=== PATIENT | female | born 1990 | race Hispanic/Latino ===

== ENCOUNTER 2019-12-06 11:19 | Day surgery (SDC) | payer OTHER ==
[2019-12-06 12:37] VITALS: BP 114/65; TEMP 98.3; BMI 33.1
--- NOTE | 2019-12-06 12:59 | PDOC.FPROB ---
FMR OB H&P: HPI - History of Present Illness Chief Complaint: Decreased Movement Indentification: 29 y/o at 39.3 wga by LMP. History of Present Illness: 29 y/o at 39.3 wga by LMP presents today after being seen at PNC for decreased movement which patient noticed this weekend. This is the first time she has experienced decrease in movement in this and was concerned about this. She denied VD, VB, LOF, headaches, vision changes/blurry vision, CP, SOB, N/V/D, dysuria, hematuria, or fever/chills. This has been uncomplicated according to patient, she has been keeping up with her PNC visits. Primary Care Physician: PNC: Chay FMR OB H&P: Current - Care : 3 Para: 1 Gestational age: 39.3 wga Due date: 12/10/19 Dating Criteria: LMP - OB Labs Blood type: O RH: positive HIV: negative RPR: negative Rubella: immune Gonorrhea: negative Chlamydia: negative Pap Smear: normal 1 hour gtt: 90 3 hour GTT: 92 GBS: positive FMR OB H&P: History - Past Medical History PMH: None - OB History OB History: 2016: D&C vs. 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 ectopic at 4 weeks, patient is unsure ([place]) 2014: due to macrosomia ([place]) 2010: appendectomy and partial ovary removal due to cyst - Social History Social History: no tobacco, etoh, drug use - Family History Family History: Mother: HTN, DM FMR OB H&P: Medications - Current Home Medications: Medication Instructions Recorded Confirmed Type Doxylamine [Unisom] 12.5 mg PO BID PRN 12/06/19 12/06/19 History Pnv No.95/Ferrous Fum/Folic AC 1 each PO DAILY 12/06/19 12/06/19 History [ Caplet] Allergies/Adverse Reactions: Allergies Allergy/AdvReac Type Severity Reaction Status Date / Time Penicillins Allergy Severe Short of Verified 12/06/19 12:39 Breath betamethasone Allergy Mild Rash Verified 12/06/19 12:40 FMR OB H&P: ROS - Review of Systems General: denies: fever/chills ENT: denies: nasal congestion Cardiovascular: denies: chest pain, palpitation, edema, orthopnea Respiratory: denies: cough, congestion, shortness of breath Gastrointestinal: denies: abdominal pain, indigestion, bloating, diarrhea, constipation, bright red blood Genitourinary (Female): reports: contractions. denies: incontinence, dysuria, hematuria, polyuria, vaginal discharge, vaginal pain, vaginal bleeding, vaginal pressure Musculoskeletal: denies: pain, stiffness, tenderness, decrease range of motion, arthritis/arthralgias Neurologic: denies: numbness, headache Integumentary: denies: itching, rash Psychological: denies: depression, anxiety FMR OB H&P: Vital Signs - Maternal Vital signs: Vital Signs - First Documented Temp Pulse Resp BP Pulse Ox 98.3 F 72 16 114/65 99 12/06/19 12:16 12/06/19 12:16 12/06/19 12:16 12/06/19 12:16 12/06/19 12:16 - Heart Tones Baseline: 140 Variability: moderate Acceleration: present Category: category 1 (about 60 minutes worth of monitoring; baby had about 6 min of minimal variability, however, after this there were occasional accels, HR in 140s, with no ctx seen, moderate variability also seen) FMR OB H&P: Physical Exam - Physical Exam General: NAD HEENT: normocephalic and atraumatic, PERRLA Neck: supple Chest: non-tender to palpation Breast: symmetric, non-tender, no erythema Heart: RRR, normal S1/S2, no murmurs/rubs/gallops, no edema General: CTAB, no respiratory distress, good air movement, no wheezing Abdomen: gravid, non-tender Musculoskeletal: normal gait and station, pulses present, no misalignment/asymmetry Neurological: cranial nerves II through XII intact Skin: no rash, good tugor Lymphatic: no unusual bruising or bleeding Psychiatric: intact recent and remote memory FMR OB H&P: A/P Discussion: Date/Time: 12/06/19 1257 29 y/o at 39.3 wga by LMP presents with decreased movement. ##sIUP in third trimester -at 39.3 wga, no complications during this -maternal labs have been neg so far in -GBS positive - tracing showed category one strip with FHT in 130s-140s with moderate variability and noted accels with no ctx seen -SVE at 10:30 am today was /-3 -will order mBPP for eval for oligo, if this is also reassuring, anticipate d/c This H&P was discussed with Dr. Coffey who agree with the above documentation and plan. Addendum: BPP was noted to be normal with LUIS FERNANDO of 13.9. Head was in vertex position. Placenta was posterior. Due to these results on top of reassuring NST, it was decided to d/c patient home with ER precautions. She is scheduled on 12/08 for TOLAC. Addendum - Attending - Attending Attestation Date/Time: 12/07/19 7199 I personally evaluated the patient and discussed the management with Dr. Scott. I agree with the History, Examination, Assessment and Plan documented above with any addition or exceptions noted below.
[2019-12-06] MEDS ORDERED: hydrALAZINE 20 MG/ML VIAL SLOW IVP PRN (13:39)
--- NOTE | 2019-12-06 15:30 | ULT ---
US Biophysical Profile: 12/06/2019 1:39 PM CLINICAL HISTORY: Decreased movement. COMPARISON: None. FINDINGS: heart rate: 121 bpm. LUIS FERNANDO: 13.9 cm Biophysical profile: 8 of 8 IMPRESSION: Normal biophysical profile
[2019-12-06] MEDS ORDERED: Magnesium Sulfate 20 gm/500 ml 0 GM/0 ML BAG ONE (15:36)
== END 2019-12-06 15:34 | disposition home or self-care (01) ==
LOC: L&D/OP 11:19
PROVIDERS: ATTEND Obstetrics & Gynecology
DX: O36.8130 Decreased fetal movements, third trimester, not applicable or unspecified (principal); O34.219 Maternal care for unspecified type scar from previous cesarean delivery; Z3A.39 39 weeks gestation of pregnancy; Z88.0 Allergy status to penicillin; Z88.8 Allergy status to other drugs, medicaments and biological substances
CPT/HCPCS: 76819; J3475

== ENCOUNTER 2019-12-08 15:15 | Outpatient (CLI) | payer OTHER ==
[2019-12-09 13:19] LABS: SARS-CoV-2 MS2 Positive; SARS-CoV-2 N Gene Negative; SARS-CoV-2 S Gene Negative; SARS-CoV-2 by NAA Not Detected (NotDetected); SARS-CoV-2 orf1ab Negative
== END 2019-12-08 15:16 | disposition home or self-care (01) ==
LOC: LABBT 15:15
PROVIDERS: ATTEND Family Medicine
DX: Z20.828 Contact with and (suspected) exposure to other viral communicable diseases (principal)
CPT/HCPCS: 87635; U0003

== ENCOUNTER 2019-12-09 06:37 | Day surgery (SDC) | payer OTHER ==
[2019-12-09 07:14] VITALS: BMI 33.5
[2019-12-09] MEDS ORDERED: FLU VACC QS2020-21(6MOS UP)/PF 60 MCG/0.5 ML SYRINGE IM ONE (07:30)
[2019-12-09] MEDS ORDERED: hydrALAZINE 20 MG/ML VIAL SLOW IVP PRN (07:49)
--- NOTE | 2019-12-09 08:22 | PDOC.FPROB ---
FMR OB H&P: HPI - History of Present Illness Chief Complaint: Contractions Indentification: 29 y/o 39.6 wga History of Present Illness: 29 y/o at 39.6 wga by LMP presents this AM after feeling contractions since 3:30 AM today. She states that her contractions have been about 5-8 minutes apart and have not spaced out since this AM and this was the reason why she came in today. She states that she has been feeling progressive leakage of fluid since yesterday which has been clear in consistency and states that she has had to change her underwear multiple times due to soaking through them. She endorses movement however she denies VB, VD, headaches, vision changes/blurry vision, CP/SOB, and abdominal pain. She was seen in OB triage on Friday the for decreased movement, however, she states that this has resolved. Primary Care Physician: LUIS DANIEL Cartwright FMR OB H&P: Current - Care : 3 Para: 1 Gestational age: 39.6 Due date: 12/10/2019 - OB Labs Blood type: O RH: positive HIV: negative RPR: negative HepBsAg: negative Rubella: immune Gonorrhea: negative Chlamydia: negative 1 hour gtt: 90 3 hour GTT: 92 GBS: positive FMR OB H&P: History - Past Medical History PMH: None - OB History OB History: 2016: D&C vs. 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 ectopic at 4 weeks, patient is unsure ([place]) 2014: due to macrosomia ([place]) 2010: appendectomy and partial ovary removal due to cyst - Social History Social History: no tobacco, etoh, drug use - Family History Family History: Mother: HTN, DM FMR OB H&P: Medications - Current Home Medications: Medication Instructions Recorded Confirmed Type Doxylamine [Unisom] 12.5 mg PO BID PRN 12/06/19 12/06/19 History Pnv No.95/Ferrous Fum/Folic AC 1 each PO DAILY 12/06/19 12/06/19 History [ Caplet] Allergies/Adverse Reactions: Allergies Allergy/AdvReac Type Severity Reaction Status Date / Time Penicillins Allergy Severe Short of Verified 12/09/19 07:15 Breath betamethasone Allergy Mild Rash Verified 12/09/19 07:15 FMR OB H&P: ROS - Review of Systems General: denies: fever/chills Eyes: denies: vision changes, double vision, scotomas ENT: denies: nasal congestion Cardiovascular: denies: chest pain, palpitation, edema Respiratory: denies: cough, congestion, shortness of breath Gastrointestinal: denies: abdominal pain, indigestion, diarrhea, constipation Genitourinary (Female): denies: incontinence, dysuria, hematuria, polyuria, vaginal discharge, vaginal pain, contractions, vaginal pressure Musculoskeletal: denies: pain, stiffness, tenderness Neurologic: denies: numbness, syncope, seizures Integumentary: denies: itching, rash, lesions FMR OB H&P: Vital Signs - Maternal Vital signs: BP: 116/72, HR 88, RR 18 - Heart Tones Baseline: 140 Variability: moderate Acceleration: present Deceleration: absent Category: category 1 [place] contractions every: 2-6 minutes FMR OB H&P: Physical Exam - Physical Exam General: NAD, awake, alert and oriented HEENT: normocephalic and atraumatic, PERRLA, MMM Neck: supple Chest: non-tender to palpation, no lesions Heart: RRR, normal S1/S2, no murmurs/rubs/gallops, no edema General: CTAB, no respiratory distress, good air movement, no rales/rhonchi, no wheezing, no retractions Abdomen: gravid, non-tender Deviation from normal: vertical incision scar Musculoskeletal: normal gait and station, pulses present, FROM in all four extremities Neurological: no clonus, no tremor, no focal deficit Skin: no rash, good tugor Lymphatic: no unusual bruising or bleeding Psychiatric: intact recent and remote memory, good judgement and insight, normal mood and affect - Pelvic Exam Vulva: normal hair distribution, no blood SVE: 50/-2 FMR OB H&P: A/P Disposition: 29 y/o at 39.6 wga by LMP presents today with contractions ##supervision sIUP in third trimester -at 39.6 wga, no hx of complications in this -maternal labs have been neg so far in , pap smear wnl -GBS positive, anaphylactic reaction to PCNs - tracing showed category one strip with FHT in 140s with moderate variability and noted accels with 2 earlies -SVE at 10:30 am on Tuesday 12/05 was 1/50/-3 in PNC office -was seen on 12/05 as triage and mBPP was performed with reassuring NST and LUIS FERNANDO of 13.9 -today SVE was 2/50/-2 at 0800 -u/s confirmed head in vertex position today -maternal VSS, no severely elevated BPs -obtained amnisure, pending results ##hx of macrosomia -aware -has had , unsure if this was a classical csx, was done in [place] -has been approved for TOLAC with Dr. Hinson ##hx of spontaneous -aware -at 4 weeks Plan: await amnisure. will recheck in about 2 hours to monitor progression. This H&P was discussed with Dr. Galeana who agree with the above documentation and plan.
[2019-12-09 08:36] LABS: Amnisure Test No Membranes Rupture (No Rupture)
[2019-12-09 08:37] LABS: Amnisure Internal Control QC ACCEPTABLE (ACCEPTABLE)
== END 2019-12-09 10:45 | disposition home or self-care (01) ==
LOC: L&D/OP 06:37
PROVIDERS: ATTEND Family Medicine
DX: O47.1 False labor at or after 37 completed weeks of gestation (principal); O99.891 Other specified diseases and conditions complicating pregnancy; N89.8 Other specified noninflammatory disorders of vagina; O34.219 Maternal care for unspecified type scar from previous cesarean delivery; O99.820 Streptococcus B carrier state complicating pregnancy; Z3A.39 39 weeks gestation of pregnancy; Z88.0 Allergy status to penicillin; Z88.8 Allergy status to other drugs, medicaments and biological substances
CPT/HCPCS: 84112

== ENCOUNTER 2019-12-09 23:42 | Inpatient (IN) | payer OTHER, SELFPAY ==
[2019-12-10 00:20] VITALS: BMI 33.5
[2019-12-10] MEDS ORDERED: NS / Oxytocin 40 units/1000ml 1,000 ML IV PRN (01:02)
[2019-12-10] MEDS ORDERED: Misoprostol 200 MCG TAB PR PRN (01:02)
[2019-12-10] MEDS ORDERED: hydrALAZINE 20 MG/ML VIAL SLOW IVP PRN (01:02)
[2019-12-10] MEDS ORDERED: Methylergonovine 0.2 MG/ML VIAL IM PRN (01:02)
[2019-12-10] MEDS ORDERED: Promethazine HCl 25 MG/ML VIAL IM PRN (01:02)
[2019-12-10] MEDS ORDERED: Ibuprofen 800 MG TAB PO PRN (01:02)
[2019-12-10] MEDS ORDERED: Carboprost 250 MCG/ML AMP IM PRN (01:02)
[2019-12-10] MEDS ORDERED: Lidocaine 1% (PF) 30 ML VIAL SC PRN (01:02)
[2019-12-10] MEDS ORDERED: Acetaminophen 500 MG TAB PO PRN (01:02)
--- NOTE | 2019-12-10 01:02 | PDOC.FPROB ---
FMR OB H&P: HPI - History of Present Illness Chief Complaint: Contractions History of Present Illness: 29 y/o at 39.7 wga by LMP presents to L&D with complains of contractions. The patient was seen in triage on 0800 12/08 with contractions every 5-8 min starting at 0330. Cervical check at that time was 2/50/-2. Patient was in latent labor and was sent home. She reports contractions increased in severity and frequency at home. Now occurring every 5 minutes. + FM. Denies vaginal bleeding, abnormal vaginal discharge and LOF. Denies headaches, vision changes/blurry vision, CP, SOB, and abdominal pain. 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: Pap smear during normal with negative HPV - Surgical History Sx History: 2016: D&C, patient unsure of details, completed in [place] 2013: 2009: appendectomy and partial ovary removal due to cyst - Social History Social History: Denies tobacco use, ETOH use and drug use - Family History Family History: Mother - HTN, DM FMR OB H&P: Medications - Current Home Medications: Medication Instructions Recorded Confirmed Type Doxylamine [Unisom] 12.5 mg PO BID PRN 12/06/19 12/06/19 History Pnv No.95/Ferrous Fum/Folic AC 1 each PO DAILY 12/06/19 12/06/19 History [ Caplet] Allergies/Adverse Reactions: Allergies Allergy/AdvReac Type Severity Reaction Status Date / Time Penicillins Allergy Severe Short of Verified 12/10/19 00:17 Breath betamethasone Allergy Mild Rash Verified 12/10/19 00:17 FMR OB H&P: ROS - Review of Systems General: denies: fever/chills, night sweats Eyes: denies: vision changes, double vision ENT: denies: nasal congestion, rhinorrhea Cardiovascular: denies: chest pain, edema Respiratory: denies: cough, shortness of breath Gastrointestinal: denies: abdominal pain Genitourinary (Female): reports: contractions. denies: dysuria, vaginal discharge, vaginal pain, vaginal bleeding Musculoskeletal: denies: pain, stiffness Neurologic: denies: syncope, loss of counsciousness, headache Hematologic/Lymphatic: denies: prolonged or excessive bleeding Psychological: denies: depression, anxiety FMR OB H&P: Vital Signs - Maternal Vital signs: BP 124/83, HR 75 - Heart Tones Baseline: 130 Variability: moderate Acceleration: present Deceleration: absent Category: category 1 [place] contractions every: 5 min FMR OB H&P: Physical Exam - Physical Exam General: NAD, awake, alert and oriented HEENT: normocephalic and atraumatic Neck: FROM, trachea midline Chest: non-tender to palpation Heart: RRR, normal S1/S2, no edema General: CTAB, no respiratory distress Abdomen: gravid, non-tender Musculoskeletal: no misalignment/asymmetry Neurological: no focal deficit Skin: no rash Lymphatic: no unusual bruising or bleeding Psychiatric: normal mood and affect - Pelvic Exam Vulva: normal hair distribution Deviation from normal: /-2 Membranes: Intact Presentation: Cephalic FMR OB H&P: A/P Disposition: #Desai IUP @ 39.7wk who presented with contractions every 5 minutes. GBS + -Admit to L&D for TOLAC -Vanc for GBS ppx due to PCN allergy and lack of culture sensitivities available -Cervical check Q4H -Desires epidural 1245 /-2, cat 1 strip #Positive GBS -Start Vanc due to PCN allergy #Hx / LGA fetus -TOLAC today -Most recent Hadlock 54% on 11/18 #Hx SAB s/p D&C -Aware #Cervical polyp -Undergo polypectomy PP Dispo: Admit to L&D for TOLAC Discussion: Date/Time: 12/10/19 0102 This H&P was discussed with [Eliel] and [Roma] who agree with the above documentation and plan. Addendum - Attending - Attending Attestation Date/Time: 12/10/19 5710 I personally evaluated the patient and discussed the management with the team. I agree with the History, Examination, Assessment and Plan documented above with any addition or exceptions noted below. Discussed r/b/a/i of TOLAC including 1:150 chance of uterine rupture and 1:1000 chance or potentially mortal outcome, with surgery potentially involving hysterectomy. They voiced that they had been told this previously in clinic and desired to proceed. Expectant management at this point as she is changing on her own.
[2019-12-10] MEDS: Lactated Ringer's 1,000 ML IV SCH ×4 (01:21→09:24)
[2019-12-10 01:39] LABS: Hemoglobin 12.1 g/dL (12.0-16.0); Mean Corpuscular HGB CONC 35.2 g/dL (32.0-36.0); Mean Corpuscular Hemoglobin 29.9 pg (27.0-31.0); Mean Corpuscular Volume 84.8 fL (78.0-98.0); Platelet Count 253 thou/uL (130-400); RBC Distribution Width 13.2 % (11.5-14.5); Red Blood Cell (RBC) Count 4.06 mill/uL (4.20-5.40); White Blood Cell (WBC) Count 10.6 thou/uL (4.8-10.8)
[2019-12-10] MEDS ORDERED: Fentanyl 4 mcg/Bup 0.1% Cadd 100 ML ONE ×2 (01:45→11:07)
[2019-12-10 02:11] LABS: Hep B Surf Ag Non-Reactive S/CO (NonReactive)
[2019-12-10] MEDS: Vancomycin HCl 1.25 GM in Sodium Chloride 0.9% 250 ML 250 ML IVPB SCH (03:16)
[2019-12-10 04:08] LABS: Syphilis Antibody Nonreactive (Nonreactive); Syphilis Antibody Index 0.03 S/CO (<1.00 Non-Reactive)
--- NOTE | 2019-12-10 06:09 | PDOC.LDPN ---
Labor & Delivery Progress Note - Subjective Subjective: comfortable - Objective Vital signs reviewed and normal: yes General: NAD Uterine fundus: non tender Dilation: 4 Effacement: 90% Station: -1 FHT: category 1, variability present [place] contractions every: 5 min Other exam findings: Bloody show Plan: continue plan of care -: #Desai IUP @ 39.7wk who presented with contractions every 5 minutes. GBS + -Admitted to L&D for TOLAC -Vanc for GBS ppx due to PCN allergy and lack of culture sensitivities available -Cervical check Q4H -Epidural placed 1245 3/-2, cat 1 strip 0230 75/-2, cat 1 strip 0600 /-1, cat 1 strip #Positive GBS -On Vanc due to PCN allergy #Hx / LGA fetus -TOLAC today -Most recent Hadlock 54% on 11/18 #Hx SAB s/p D&C -Aware #Cervical polyp -Undergo polypectomy PP Dispo: Continue plan of care Addendum - Attending - Attending Attestation Date/Time: 12/10/19 6890 I personally evaluated the patient and discussed the management with the team. I agree with the History, Examination, Assessment and Plan documented above with any addition or exceptions noted below. Recheck in 2 hours. Either pitocin at that time vs AROM with placement of internals.
[2019-12-10] MEDS: Ondansetron PF 4 MG/2 ML Vial IVP PRN ×2 (06:23→15:23)
--- NOTE | 2019-12-10 09:18 | PDOC.OBLPN ---
FMR OB Labor PN: Subj - Interval History Hospital Day: 1 Chief Complaint: SVE Check Indentification: Interval History: No Complaints FMR OB Labor PN: Obj - Maternal Vital signs: BP: [120/61] HR: [71] RR: [] Tmax: [] Pox: []% on [Room Air] Wt: [88 kg] - Procedures Resuscitative measures: maternal IV fluids (LR @ 125 ml/hr) FMR OB Labor PN: Exam - Physical Exam General: NAD, awake, alert and oriented HEENT: normocephalic and atraumatic, EOMI, MMM, grossly normal vision, grossly normal hearing Neck: supple, FROM Chest: non-tender to palpation, no lesions Breast: symmetric Heart: RRR, normal S1/S2, no murmurs/rubs/gallops, pulses present, no edema General: CTAB, no respiratory distress, good air movement, no rales/rhonchi, no wheezing, no retractions Abdomen: gravid, non-tender Musculoskeletal: pulses present, FROM in all four extremities Neurological: sensation to pain,touch and proprioception grossly normal Skin: no rash Psychiatric: normal mood and affect - Pelvic Exam Vulva: normal hair distribution Deviation from normal: Bloody show Cervix: no masses SVE: 6/90/-1 Zavala score: 11 Membranes: Intact Presentation: Vertex FMR OB Labor PN: Data - Labs Lab results: Laboratory Results - last 24 hr 12/10/19 12/10/19 12/10/19 01:24 01:24 01:24 WBC RBC Hgb Hct MCV MCH MCHC RDW Plt Count MPV Syphilis IgG/IgM Ab Nonreactive Hep Bs Antigen Non-Reactive Blood Type O POSITIVE Antibody Screen NEGATIVE 12/10/19 12/10/19 01:24 05:58 WBC 10.6 RBC 4.06 L Hgb 12.1 Hct 34.4 L MCV 84.8 MCH 29.9 MCHC 35.2 RDW 13.2 Plt Count 253 MPV 8.0 Syphilis IgG/IgM Ab Hep Bs Antigen Blood Type O POSITIVE Antibody Screen FMR OB Labor PN: A/P - Problem List (1) Failed trial of labor following previous , antepartum Current Visit: Yes Status: Acute Code(s): O66.41 - FAILED ATTEMPT VAGINAL AFTER PREVIOUS DEL (2) Positive GBS test Current Visit: Yes Status: Acute Code(s): B95.1 - STREPTOCOCCUS, GROUP B, CAUSING DISEASES CLASSD ELSWHR Disposition: Patient is a 29 y/o @ 39.7W EGA who presents to L&D for TOLAC following CTX that began at approximately 0001. 1. Desai IUP, TOLAC -Patient has no complaints at this time - epidural in place -Maternal VSS -FHTs in the 130s with moderate variability and no acels or decels - suspect Sleep Cycle -Vertex position -CTX Q5-7M -Membranes intact -LR @ 125 ml/hr -Will continue maternal and monitoring -/-2 @ 1245 - Cat 1 strip -/-2 @ 0230 - Cat 1 strip -/-1 @ 0600 - Cat 1 strip -90/-1 @ 0900 - Cat 1 strip 2. GBS(+) -Patient is currently receiving Vancomycin due to allergy to Penicillin (Anaphylaxis) 3. Hx 2/2 LGA Fetus -See #1 -Most recent Hadlock was measured at 54% on 11/18 4. Hx SAB s/p D&C -Aware 5. Cervical polyp -Will plan for patient to undergo polypectomy s/p delivery - optimal date unknown at this time. Dispo: Will continue current plan of care, with maternal and monitoring, IVF, ABx, and pain control as per above. Next SVE at 1200. Discussion: Date/Time: 12/10/19 0916 This H&P was discussed with [] and [] who agree with the above documentation and plan. Addendum - Attending - Attending Attestation Date/Time: 12/10/19 3286 I personally evaluated the patient and discussed the management with Dr. Lockhart. I agree with the History, Examination, Assessment and Plan documented above with any addition or exceptions noted below.
--- NOTE | 2019-12-10 11:53 | PDOC.OBLPN ---
FMR OB Labor PN: Subj - Interval History Hospital Day: 1 Chief Complaint: None Indentification: @ 40 WGA who presenting in active labor. Interval History: SROM @ ~1142 FMR OB Labor PN: Obj - Maternal Vital signs: BP: 102/55 HR: 88 Wt: 87.997 kg - Procedures Resuscitative measures: maternal IV fluids FMR OB Labor PN: Exam - Physical Exam General: NAD, awake, alert and oriented HEENT: normocephalic and atraumatic, MMM, grossly normal vision, grossly normal hearing Neck: supple, FROM General: no respiratory distress Abdomen: gravid Neurological: cranial nerves II through XII intact, sensation to pain,touch and proprioception grossly normal, no focal deficit Psychiatric: intact recent and remote memory, good judgement and insight, normal mood and affect - Pelvic Exam Vulva: normal hair distribution, appropriate magy stage SVE: /-1 Membranes: ruptured Presentation: cephalic FMR OB Labor PN: Data - Labs Lab results: Laboratory Results - last 24 hr 12/10/19 12/10/19 12/10/19 01:24 01:24 01:24 WBC RBC Hgb Hct MCV MCH MCHC RDW Plt Count MPV Syphilis IgG/IgM Ab Nonreactive Hep Bs Antigen Non-Reactive Blood Type O POSITIVE Antibody Screen NEGATIVE 12/10/19 12/10/19 01:24 05:58 WBC 10.6 RBC 4.06 L Hgb 12.1 Hct 34.4 L MCV 84.8 MCH 29.9 MCHC 35.2 RDW 13.2 Plt Count 253 MPV 8.0 Syphilis IgG/IgM Ab Hep Bs Antigen Blood Type O POSITIVE Antibody Screen FMR OB Labor PN: A/P - Problem List (1) Encounter for trial of labor Current Visit: Yes Status: Acute Code(s): [id number] - (2) History of section complicating Current Visit: Yes Status: Chronic Code(s): O34.219 - MATERNAL CARE FOR UNSP TYPE SCAR FROM PREVIOUS DEL (3) Positive GBS test Current Visit: Yes Status: Acute Code(s): B95.1 - STREPTOCOCCUS, GROUP B, CAUSING DISEASES CLASSD ELSWHR Disposition: Patient is a 29 y/o @ 39.7W EGA who presents to L&D for TOLAC following CTX that began at approximately 0001. 1. Desai IUP, TOLAC -Patient has no complaints at this time - epidural in place -Maternal VSS -FHTs in the 120s with minimal variability and no acels w/ occasional early decels - suspect Sleep Cycle -CTX Q5-7M -LR @ 125 ml/hr -Will continue maternal and monitoring -/-2 @ 1245 - Cat 1 strip -/-2 @ 0230 - Cat 1 strip -/-1 @ 0600 - Cat 1 strip -/-1 @ 0900 - Cat 1 strip -/-1 @ 1149 - Cat 2 strip 2. GBS(+) -Patient is s/p IV Vancomycin x1 due to allergy to Penicillin (Anaphylaxis). Second dose started @ 1500. 3. Hx 2/2 LGA Fetus -See #1 -Most recent Hadlock was measured at 54% on 11/18 4. Hx SAB s/p D&C -Aware 5. Cervical polyp -Will plan for patient to undergo polypectomy s/p delivery - optimal date unknown at this time. Dispo: Will continue current plan of care, with maternal and monitoring, IVF, ABx, and pain control as per above. Next SVE @ ~1300 or sooner if patient reports increased pressure. Discussion: Date/Time: 12/10/19 1151 This H&P was discussed with [] and [] who agree with the above docume ntation and plan.
[2019-12-10] MEDS ORDERED: NS / Oxytocin 40 units/1000ml 1,000 ML ONE ×2 (12:09→14:09)
[2019-12-10] MEDS ORDERED: Lidocaine 1% (PF) 30 ML VIAL ONE (12:09)
[2019-12-10] MEDS ORDERED: Misoprostol 200 MCG TAB ONE (14:08)
[2019-12-10] MEDS ORDERED: Carboprost 250 MCG/ML AMP ONE (14:09)
[2019-12-10] MEDS ORDERED: Tranexamic Acid 1,000 MG/10 ML VIAL ONE ×2 (14:09→16:31)
[2019-12-10] MEDS ORDERED: Methylergonovine 0.2 MG/ML VIAL ONE (14:09)
[2019-12-10] MEDS ORDERED: Lidocaine 2% 10 ML INJ ONE ×2 (14:24)
[2019-12-10] MEDS ORDERED: Tranexamic Acid 1,000 MG in Sodium Chloride 0.9% 250 ML 250 ML IVPB SCH (16:15)
[2019-12-10] MEDS ORDERED: diphenhydrAMINE 25 MG CAP PO PRN (16:54)
[2019-12-10] MEDS ORDERED: Lanolin Ointment 7 GM TUBE TOP PRN (16:54)
[2019-12-10] MEDS ORDERED: Milk Of Magnesia 30 ML UDCUP PO PRN (16:54)
[2019-12-10] MEDS ORDERED: NS / Oxytocin 40 units/1000ml 1,000 ML IV SCH (16:54)
[2019-12-10] MEDS ORDERED: Benzocaine-Menthol 82.5 ML CAN TOP PRN (16:54)
[2019-12-10] MEDS ORDERED: Bisacodyl 10 MG SUPP PR PRN (16:54)
--- NOTE | 2019-12-10 16:59 | PDOC.BPN ---
- Brief Progress Note Attended the /success of live male . See separate report for details. Following delivery, a vaginal tear was noted and repaired without difficulty, bleeding form the cervix adn cervicla os was noted. Although the uterus was firm we gave methergin and TXA. A left sided cervical tear was identified, however, for better patient comfort , exposure, and lighting we transition to the OR with anesthesia support. Her Epidural as re-bolused and Dr Cartwright and I were able to visualize actively bleeding bilateral cervical tears at the 3 and 9 o'clock positions. There were ligated withy 2-O chromic with good results. See resident note for more details.
[2019-12-10] MEDS: Ibuprofen 800 MG TAB PO SCH (21:58)
[2019-12-10] MEDS: Docusate Calcium (SURFAK) 240 MG CAP PO SCH (21:58)
[2019-12-11] MEDS: Vancomycin HCl 1.25 GM in Sodium Chloride 0.9% 250 ML 250 ML IVPB SCH (03:17)
[2019-12-11] MEDS: Ferrous Sulfate 325 MG TAB PO SCH ×4 (03:17→16:48)
[2019-12-11] MEDS: Ibuprofen 800 MG TAB PO SCH ×3 (05:11→22:17)
--- NOTE | 2019-12-11 06:52 | PDOC.OPDEL ---
OB Operative/Delivery Note Delivery Dr/Surgeon: Chay/Jin Pre-Delivery Diagnosis: active labor Procedure/Post Delivery Dx: vaginal delivery after CS Weeks gestation: 40 Anesthesia: epidural - Additional Findings/Plan Placenta delivered: spontaneous Repaired Obstetrical Laceration: other (B/L cervical lacerations) Estimated blood loss: 537mL Compilations/Other Findings: Pre-op Diagnosis: 1. Term intrauterine in labor 2. Hx of pLTCS for macrosomia Post-op Diagnosis: 1. Term intrauterine , delivered 2. same as above 3. Bilateral cervical lacerations s/p repair 4. R inferior vaginal laceration s/p repair Indications: A 29 y/o female presents in active labor & desires a TOLAC. Delivery Note: This is 29 yo F @ 40 wks who delivered a viable M infant at 1339. Following an uneventful antepartum course, a vigorous male was delivered over an intact perineum in the occipitoanterior position. Anterior Shoulder and then remainder of the body delivered. No nuchal cord. The head was held down and mouth and nares were bulb suctioned. Cord clamped and cut and cord blood collected. Placenta delivered intact in the [place] presentation with a 3 vessel cord noted. Fundal massage was performed and the fundus was firm. The cervix and vagina were inspected and a right inferior vaginal laceration was noted & repaired with 3-0 vicryl on an SH & CT in the usual fashion. Afterwards some persistent bleeding was noted & upon inspection of the cervix bilateral cervical lacerations @ ~ 3 and 10 o-clock were noted. The patient was take to the OR & placed under augmented epidural anesthesia for better pain control and improved visualization and positioning for the repair and the lacerations which was accomplished using 3-[address] in the usual fashion. Following repair, hemostasis was noted. Infant went to nursery in good condition for routine care. Apgars were 8/9 at 1 & 5 minutes, respectively. Patient tolerated delivery well and repairs well and went to after routine recovery/care. Post delivery plan: routine recovery
--- NOTE | 2019-12-11 06:54 | PDOC.OBPPN ---
FMR OB PN: Subj - Interval History Hospital Day: 2 Day: 1 Chief Complaint: none Indentification: G3 now P1112 who is PP day #1 s/p Interval History: Tolerating PO, voiding, passing gas. Pain controlled. FMR OB PN: Obj - Maternal Vital signs: BP: 96/51 HR: 51 RR: 18 Tmax: 98.3F Wt: 87 kg - Urine output I&O: 12/09/19 12/10/19 12/11/19 06:59 06:59 06:59 Output Total 1033 Balance -1033 - Lochia Lochia: normal - Pain Management Intervention: oral medication FMR OB PN: Exam - Physical Exam General: NAD, awake, alert and oriented HEENT: normocephalic and atraumatic, grossly normal vision, grossly normal hearing Neck: supple, FROM Heart: RRR, normal S1/S2, no murmurs/rubs/gallops, no edema General: CTAB, no respiratory distress Abdomen: soft, fundus(cm) (firm just right and above the umbilicus), bowel sound present Musculoskeletal: normal gait and station, FROM in all four extremities Neurological: cranial nerves II through XII intact, sensation to pain,touch and proprioception grossly normal, no focal deficit Skin: no rash, good tugor : no edema, appropriately tender Lymphatic: no unusual bruising or bleeding Psychiatric: intact recent and remote memory, good judgement and insight, normal mood and affect - Pelvic Exam : perineal incision/laceration healing well, sutures intact, no discharge, no edema, normal lochia FMR OB PN: Data - Labs Lab results: Laboratory Results - last 24 hr 12/10/19 01:24 Blood Type O POSITIVE Antibody Screen NEGATIVE Crossmatch See Detail FMR OB PN: A/P - Problem List (1) Encounter for trial of labor Current Visit: Yes Status: Resolved Code(s): [id number] - (2) History of section complicating Current Visit: Yes Status: Chronic Code(s): O34.219 - MATERNAL CARE FOR UNSP TYPE SCAR FROM PREVIOUS DEL (3) Positive GBS test Current Visit: Yes Status: Acute Code(s): B95.1 - STREPTOCOCCUS, GROUP B, CAUSING DISEASES CLASSD ELSWHR (4) care following vaginal delivery Current Visit: Yes Status: Acute Code(s): Z39.2 - ENCOUNTER FOR ROUTINE FOLLOW-UP (5) Cervical laceration Current Visit: Yes Status: Acute Code(s): S37.63XA - LACERATION OF UTERUS, INITIAL ENCOUNTER Disposition: Patient is a 29 y/o who is PP day #1 s/p successful @ 40 WGA. 1. PP s/p complicated by vaginal & cervical lacerations: - VS WNLs. Tolerating PO, ambulating, voiding & passing gas. Pain controlled on PO meds. Sutures intact w/o evidence of hematoma. QBL only 633mL since delivery. Continue routine PP care. 2. Hx / LGA Fetus -Aware -Most recent Hadlock was measured at 54% on 11/18 3. Hx SAB s/p D&C -Aware 4. Cervical polyp -Aware, will plan for patient to undergo polypectomy ~6 wks PP Dispo: Will continue routine PP care w/ possible d/c home later today vs. tomorrow AM pending 's clinical course. Discussion: Date/Time: 12/11/19651 This H&P was discussed with Dr. Abdi who agrees with the above documentation and plan. Addendum - Attending - Attending Attestation Date/Time: 12/12/19 49 I personally evaluated the patient and discussed the management with Dr. Cartwright. I agree with the History, Examination, Assessment and Plan documented above with any addition or exceptions noted below.
[2019-12-11] MEDS: Prenatal Vitamin 1 TAB PO SCH (08:39)
[2019-12-11] MEDS: Docusate Calcium (SURFAK) 240 MG CAP PO SCH ×2 (08:39→22:17)
[2019-12-11 20:48] VITALS: TEMP 98.1
[2019-12-12] MEDS: Ibuprofen 800 MG TAB PO SCH (05:27)
--- NOTE | 2019-12-12 07:30 | PDOC.OBPPN ---
FMR OB PN: Subj - Interval History Hospital Day: 3 Day: 2 Chief Complaint: none Indentification: G3 now P1112 who is PP day #2 s/p successful . Interval History: Tolerating PO, voiding, ambulating, & passing gas. Ready for discharge. FMR OB PN: Obj - Maternal Vital signs: BP: 103/50 HR: 58 RR: 16 Tmax: 98.1F Pox: 96% on RA Wt: 87 kg - Urine output I&O: 12/11/19 12/12/19 12/13/19 06:59 06:59 06:59 Output Total 1033 27 Balance -1033 -27 - Lochia Lochia: WNLs - Pain Management Pain scale: 0 Intervention: oral medication FMR OB PN: Exam - Physical Exam General: NAD, awake, alert and oriented HEENT: normocephalic and atraumatic, grossly normal vision, grossly normal hearing Neck: supple, FROM Heart: RRR, normal S1/S2, no murmurs/rubs/gallops, no edema General: CTAB, no respiratory distress Abdomen: soft, fundus(cm), bowel sound present Musculoskeletal: normal gait and station, FROM in all four extremities Neurological: cranial nerves II through XII intact, sensation to pain,touch and proprioception grossly normal, no focal deficit Psychiatric: intact recent and remote memory, good judgement and insight, normal mood and affect - Pelvic Exam : no discharge, no edema, normal lochia FMR OB PN: A/P - Problem List (1) Encounter for trial of labor Current Visit: Yes Status: Resolved Code(s): [id number] - (2) History of section complicating Current Visit: Yes Status: Chronic Code(s): O34.219 - MATERNAL CARE FOR UNSP TYPE SCAR FROM PREVIOUS DEL (3) Positive GBS test Current Visit: Yes Status: Acute Code(s): B95.1 - STREPTOCOCCUS, GROUP B, CAUSING DISEASES CLASSD ELSWHR (4) care following vaginal delivery Current Visit: Yes Status: Acute Code(s): Z39.2 - ENCOUNTER FOR ROUTINE FOLLOW-UP (5) Cervical laceration Current Visit: Yes Status: Acute Code(s): S37.63XA - LACERATION OF UTERUS, INITIAL ENCOUNTER Disposition: Patient is a 29 y/o who is PP day #2 s/p successful @ 40 WGA. 1. PP s/p complicated by vaginal & cervical lacerations: - VS WNLs. Tolerating PO, ambulating, voiding & passing gas. Pain controlled on PO meds. QBL only 660mL since delivery. Continue routine PP care. 2. Hx / LGA Fetus -Aware -Most recent Hadlock was measured at 54% on 11/18 3. Hx SAB s/p D&C -Aware 4. Cervical polyp -Aware, will plan for patient to undergo polypectomy ~6 wks PP Dispo: Will continue routine PP care w/ possible today with follow-up @ [facility] in 2 weeks. Discussion: Date/Time: 12/12/19727 This H&P was discussed with Dr. Abdi who agrees with the above documentation and plan. Addendum - Attending - Attending Attestation Date/Time: 12/12/19 0221 I personally evaluated the patient and discussed the management with Dr. Cartwright. I agree with the History, Examination, Assessment and Plan documented above with any addition or exceptions noted below.
[2019-12-12 08:00] VITALS: BP 103/50
[2019-12-12] MEDS: Ferrous Sulfate 325 MG TAB PO SCH (08:52)
[2019-12-12] MEDS: Docusate Calcium (SURFAK) 240 MG CAP PO SCH (08:52)
[2019-12-12] MEDS: Prenatal Vitamin 1 TAB PO SCH (08:52)
== END 2019-12-12 11:37 | disposition home or self-care (01) | DRG 768 ==
LOC: L&D/OP 23:42 → L&D 12-10 01:02 → 3SW 12-10 18:50
PROVIDERS: ADMIT Family Medicine; ATTEND Family Medicine
PROC: 10E0XZZ Delivery of Products of Conception, External Approach (ICD-10-PCS; principal; 2019-12-10)
PROC: 0UQC7ZZ Repair Cervix, Via Natural or Artificial Opening (ICD-10-PCS; 2019-12-10)
PROC: 0UQG7ZZ Repair Vagina, Via Natural or Artificial Opening (ICD-10-PCS; 2019-12-10)
PROC: 10907ZC Drainage of Amniotic Fluid, Therapeutic from Products of Conception, Via Natural or Artificial Opening (ICD-10-PCS; 2019-12-10)
DX: O99.824 Streptococcus B carrier state complicating childbirth (principal); Z37.0 Single live birth; Z3A.39 39 weeks gestation of pregnancy; O34.211 Maternal care for low transverse scar from previous cesarean delivery; N85.8 Other specified noninflammatory disorders of uterus; O34.43 Maternal care for other abnormalities of cervix, third trimester; N84.1 Polyp of cervix uteri; Z20.828 Contact with and (suspected) exposure to other viral communicable diseases; O71.3 Obstetric laceration of cervix; O71.4 Obstetric high vaginal laceration alone; Z88.0 Allergy status to penicillin; Z88.8 Allergy status to other drugs, medicaments and biological substances
CPT/HCPCS: 36415; 51702; 76815; 84112; 85027; 86780; 86850; 86900; 86901; 87340; 87635; 99285; J2210; J2405; J3370; J7050; U0003